=== PATIENT | female | born 1945 | race Caucasian/White ===

== ENCOUNTER 2017-02-23 15:59 | Emergency (ER) | payer MEDICARE, OTHER ==
[2017-02-23 16:28] VITALS: RESP 18
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
[2017-02-23 17:08] LABS: Appearance,Urine Turbid (Clear); Bilirubin,Urine Negative (Negative); Glucose,Urine (UA) Negative (Negative); Ketones,Urine Negative (Negative); Leukocyte Esterase,Urine Negative (Negative); Mucus,Urine Many /hpf; Nitrite,Urine Negative (Negative); PH, Urine 6.5 (5.0-8.0); Particle Count 58716; Protein,Urine Trace (Negative); UA Billing (MACRO vs. MICRO) MICRO; Urobilinogen,Urine <2.0 mg/dL (<2.0); WBC,Urine 4 /hpf (0-5)
[2017-02-23 19:12] VITALS: BP 146/83; PULSE 84; TEMP 98.8
== END 2017-02-23 19:20 | disposition home or self-care (01) ==
LOC: EC 15:59
DX: M54.5 Low back pain (principal); I10 Essential (primary) hypertension; G35 Multiple sclerosis; Z88.5 Allergy status to narcotic agent; Z79.899 Other long term (current) drug therapy
CPT/HCPCS: 81001; 87086; 99284